=== PATIENT | male | born 1960 | race African-American/Black ===

== ENCOUNTER 2016-10-14 14:08 | Emergency (ER) | payer OTHER ==
[~2016-10-14] VITALS: Ht 167.6 cm; Wt 89.0 kg
[~2016-10-14 14:08] MED LIST: NO MEDS
[2016-10-14] MEDS ORDERED: MIRALAX255 GM PO (14:47)
[2016-10-14 14:57] VITALS: BP 134/96
== END 2016-10-14 14:58 | disposition home or self-care (01) ==
LOC: EME 14:08
DX: K42.9 Umbilical hernia without obstruction or gangrene (principal)
CPT/HCPCS: 80048; 81003; 85027; 99281; 99283